=== PATIENT | male | born 1930 | race Caucasian/White ===

== ENCOUNTER → 2020-11-02 | Outpatient (CLI) | payer OTHER ==
[~2020-11-02] MED LIST: ACET650T61 PO; AMLO1TAB24 PO; ASPI81TA26 PO; ATEN50TA2 PO; CHLO4TAB PO; GLUC1CAP10 PO; K-TA1TAB PO; LASI20TA3 PO; NOVOINJ3 SC; VITMTA PO; ZYLO300T6 PO
[2020-11-02 12:47] LABS: BASO % 0.4 % (0.0-1.0); EOS # 0.1 10^3/uL (0.0-0.5); EOS % 1.5 % (0.0-3.0); HEMOGLOBIN 15.3 g/dl (13.5-17.5); LYMPH # 1.3 10^3/uL (1.5-5.0); LYMPH % 13.4 % (24.0-44.0); MEAN CORPUSCULAR HEMOGLOBIN 30.1 pg (27.0-33.0); MEAN CORPUSCULAR VOLUME 88.6 fl (80.0-96.0); MONO # 0.6 10^3/uL (0.0-0.8); MONO % 6.3 % (2.0-8.0); NEUTROPHILS # 7.4 10^3/uL (1.5-8.5); NEUTROPHILS % 78.1 % (36.0-66.0); PLATELET COUNT, AUTOMATED 205 10^3/uL (150-450); RED BLOOD COUNT 5.08 10^6/uL (4.30-6.10); WHITE BLOOD COUNT 9.4 10^3/uL (4.0-10.0)
[2020-11-02 13:46] LABS: ALBUMIN 3.7 GM/DL (3.2-5.2); BILIRUBIN,TOTAL 0.9 MG/DL (0.2-1.0); CALCIUM LEVEL 10.2 MG/DL (8.8-10.2); CREATININE FOR GFR 1.54 MG/DL (0.70-1.30); FREE THYROXINE INDEX 2.7 % (1.4-3.8); GLOMERULAR FILTRATION RATE 45.6 (>35); POTASSIUM SERUM 4.6 MEQ/L (3.5-5.1); THYROID STIMULATING HORMONE 4.52 uIU/ML (0.358-3.740); THYROXINE (T4) 7.9 UG/DL (4.5-12.0); TOTAL 25(OH) VITAMIN D 31.5 NG/ML (30.0-100.0); TOTAL PROTEIN 7.3 GM/DL (6.4-8.2)
== END ==
LOC: M WUC 09:22
PROVIDERS: ATTEND Physician Assistant
DX: E11.621 Type 2 diabetes mellitus with foot ulcer (principal); L97.522 Non-pressure chronic ulcer of other part of left foot with fat layer exposed; Z79.899 Other long term (current) drug therapy; L97.512 Non-pressure chronic ulcer of other part of right foot with fat layer exposed
CPT/HCPCS: 11042; 36415; 80053; 82306; 82652; 82948; 83036; 84436; 84443; 84479; 85025; G0463

== ENCOUNTER → 2020-11-09 | Outpatient (REF) | payer OTHER | LOC: M LAB REF 11:47 | PROVIDERS: ATTEND Physician Assistant | DX: L97.512 Non-pressure chronic ulcer of other part of right foot with fat layer exposed (principal) ==

== ENCOUNTER 2020-12-11 12:44 | Observation (INO) | payer OTHER ==
[~2020-12-11] VITALS: Ht 167.6 cm; Wt 75.8 kg
[~2020-12-11 12:44] MED LIST changes: -NOVOINJ3 SC
[2020-12-11 13:39] LABS: HEMATOCRIT 35.5 % (42.0-52.0); HEMOGLOBIN 12.1 g/dl (13.5-17.5); MEAN CORPUSCULAR HEMOGLOBIN 29.4 pg (27.0-33.0); MEAN CORPUSCULAR HGB CONC 34.1 g/dl (32.0-36.5); MEAN CORPUSCULAR VOLUME 86.2 fl (80.0-96.0); PLATELET COUNT, AUTOMATED 229 10^3/uL (150-450); RED BLOOD COUNT 4.12 10^6/uL (4.30-6.10); WHITE BLOOD COUNT 9.6 10^3/uL (4.0-10.0)
[2020-12-11 13:52] LABS: INR 1.04; PROTHROMBIN TIME 13.8 SECONDS (12.5-14.3)
[2020-12-11 14:07] LABS: CALCIUM LEVEL 9.9 MG/DL (8.8-10.2); CREATININE FOR GFR 1.59 MG/DL (0.70-1.30); POTASSIUM SERUM 4.8 MEQ/L (3.5-5.1)
[2020-12-11] MEDS ORDERED: HumaLOG INSULIN (NovoLOG) PER UNIT As Ordered ONE (14:49)
[2020-12-11] MEDS ORDERED: diphenhydrAMINE 50MG/ML VIAL (J1200) As Ordered ONE (15:00)
[2020-12-11] MEDS ORDERED: MIDAZOLAM INJ 2MG/2ML VIAL (J2250 PER 1MG) As Ordered ONE (15:00)
[2020-12-11] MEDS ORDERED: fentaNYL 100 MCG/2 ML INJECTION (J3010) As Ordered ONE (15:00)
[2020-12-11] MEDS ORDERED: ISOVUE-300 61% 50ML VIAL As Ordered ONE (15:01)
[2020-12-11] MEDS ORDERED: LIDOCAINE 1% MDV 20ML VIAL As Ordered ONE (15:01)
--- NOTE | 2020-12-11 15:27 | IRHP ---
[facility] IR Pre-Procedure H & P General Date of Service: Dec 11, 2020 Procedure: Same Day Surgery Interval History and Physical I have seen the patient and reviewed last H & P performed within 30 days. There is no significant interval change. History of Present Illness Chief Complaint The patient is a 89-year-old male admitted with a reason for visit of PAD. PRE-PROCEDURE DIAGNOSIS: PAD HEART: Normal rate. LUNGS: Normal breathing at rest. ASA Classification ASA Classification: III-Severe systemic dis. Mallampati Score: II NPO: Yes Problems with prior sedation: No Obstructive Sleep Apnea: No Plan moderate sedation Allergies Coded Allergies: TAPE (Verified Allergy, Mild, RASH, 12/11/20) lisinopril (Verified Adverse Reaction, Mild, COUGH, 12/11/20) Home Medications Scheduled Acetaminophen (Tylenol Arthritis), 650 MG PO Q8H, (Reported) Allopurinol (Zyloprim), 300 MG PO DAILY, (Reported) Amlodipine Besylate (Amlodipine Besylate), 5 MG PO DAILY, (Reported) Aspirin (Aspirin EC), 81 MG PO DAILY, (Reported) Atenolol (Atenolol), 50 MG PO DAILY, (Reported) Chlorpheniramine Maleate (Chlor-Trimeton), 4 MG PO BID, (Reported) Furosemide (Lasix), 20 MG PO DAILY, (Reported) Gluc Jade/Chondro Jade A/Vit C/Mn (Glucosamine-Chondroitin Cap), 1 CAP PO DAILY, (Reported) Multivitamins (Thera M Plus Tablet), 1 TAB PO DAILY, (Reported) Potassium Chloride (K-Tab ER), 20 MEQ PO DAILY, (Reported) VS, I&O, 24H, [employer] Vital Signs/I&O Vital Signs Date Time Temp Pulse Resp B/P (MAP) Pulse Ox O2 Delivery O2 Flow Rate FiO2 12/11/20 15:10 68 18 98 Nasal Cannula 2 12/11/20 13:15 97.2 Laboratory Data 24H LABS Laboratory Tests 2 12/11/20 13:25: Nucleated Red Blood Cells % (auto) 0.0, Prothrombin Time 13.8, Prothromb Time International Ratio 1.04, Anion Gap 5L, Glomerular Filtration Rate 44.0, Calcium Level 9.9 CBC/BMP Laboratory Tests 12/11/20 13:25 CLIVE BLACK MD Dec 11, 2020 15:27
[2020-12-11] MEDS ORDERED: GLUCAGON INJ 1MG VIAL SC PRN (17:50)
[2020-12-11] MEDS ORDERED: GLUCOSE 4GM CHEW TABLET PO PRN (17:50)
[2020-12-11] MEDS ORDERED: DEXTROSE 50% 50 ML SYRINGE IV PRN (17:50)
[2020-12-11] MEDS ORDERED: NOVOINJ3 SC (18:21)
[2020-12-11] MEDS ORDERED: traMADol 50 MG TAB PO PRN (18:25)
[2020-12-11] MEDS ORDERED: ACETAMINOPHEN 325 MG TAB As Ordered ONE (18:29)
[2020-12-11] MEDS ORDERED: LORazepam 2 MG TAB PO PRN (18:30)
[2020-12-11] MEDS: ACETAMINOPHEN TAB 650MG DOSE (2X325MG) PO PRN (18:32)
--- NOTE | 2020-12-11 18:34 | HPEPDOC ---
[facility] Medical History & Physical Date of Admission Dec 11, 2020 Date of Service: Dec 11, 2020 Attending Physician: Sharon Raman MD History and Physical CHIEF COMPLAINT: S/p LLE angiogram, observation HISTORY OF PRESENT ILLNESS: Patient is an 89-year-old male with past medical history of peripheral arterial disease, diabetes mellitus, gout, hyperlipidemia, BPH, anemia, chronic kidney disease, obesity, alcohol abuse with left lower extremity popliteal occlusion who presented to [facility] radiology on 12/11/2020 for popliteal artery vascular revascularization. Pre-entry and postoperatively the patient had no acute issues. The interventional radiologist wish to keep the patient for obs ervation stay afterwards medicine team was consulted to admit. At the time of admission the patient had no acute complaints he denied left lower extremity pain, nausea, vomiting, fevers, chills, headache, lightheadedness, dizziness. Vital signs were stable. Patient was awake alert and oriented 3 with no acute complaints. On exam all pulses were present, extremities appear to be perfusing well. All incisions were clean. The patient was admitted under observation status to the hospitalist service for further monitoring. REVIEW OF SYSTEMS: Negative except for what was mentioned above PAST MEDICAL HISTORY: peripheral arterial disease, diabetes mellitus, gout, hyperlipidemia, BPH, anemia, chronic kidney disease, obesity, alcohol abuse PAST SURGICAL HISTORY: LLE angiogram 12/11/20 Appendectomy] Angioplasty 11/2020 FAMILY HISTORY: Father: at 54 y/o Mother: cancer. at 78 y/o SOCIAL HISTORY: Half pack per day smoker for 60 years. Drinks 23 beers per night. Denies i llicit drug use. Lives with his family locally. His primary care provider is through the [place]. Interventional radiologist is Dr. Stiles ALLERGIES: Please see below. HOME MEDICATIONS: Please see below. PHYSICAL EXAMINATION: VS: Please see below CONSTITUTIONAL: No acute distress, resting comfortably, AAO x 3 EYES: PERRLA, EOM intact HENT, MOUTH: Normocephalic, atraumatic, moist mucous membranes NECK: SUPPLE, no JVD, no lymphadenopathy, no carotid bruit CV: Regular rate and rhythm, S1S2 normal, no murmurs/rubs/gallops RESPIRATORY: Clear to auscultation bilaterally, no rales/rhonchi/wheezes GI: BS positive in 4 quadrants, soft, nontender, nondistended, no rebound or guarding, no organomegaly : Deferred MUSCULOSKELETAL: No cyanosis, clubbing, swelling, joint deformity. Incisions of lower ext appear clean, covered in fresh bandage. Mild edema L>R. Pulses strong and present in popliteal, DP, PT b/l lower ext. cap refill ,2 sec in all digits on the LE. INTEGUMENTARY: Intact, no rashes, no lesions, no erythema NEUROLOGIC: Cranial Nerves II-XII are intact, no focal deficits PSYCHIATRIC: Mood and affect are normal LABORATORY DATA: Please see below IMAGING: None ASSESSMENT: 89-year-old male with past medical history of peripheral arterial disease, diabetes mellitus, gout, hyperlipidemia, BPH, anemia, chronic kidney disease, obesity, alcohol abuse admitted under observation status to the hospitalist service for LLE popliteal occlusion s/p popliteal revascularization. PLAN: LLE popliteal occlusion s/p popliteal revascularization/angioplasty -No complications pre-, intra- and post-operatively -Bedrest/off leg for 4 hours after admission -Can resume normal ambulation after 4 hours of bedrest -Resume ASA in the AM, o/p prescription for plavix to be sent in by IR. -Not on statin medication -To f/u with IR after discharge DM type II -BS in 300's -ISS, FS AC/HS, consistent carb diet HTN -BP slightly elevated -2 gm sodium diet -Resume home medications Hypokalemia, chronic -Resume home med Gout -Stable Alcohol abuse -Pt states to have "cut down" to 2-3 beers nightly -No s/s of alcohol withdrawl -[place] protocol DVT px -To resume ASA in the AM DISPOSITION: Admitted under observation status. If all is well overnight, d/c in the AM with f/u with IR. Vital Signs Vital Signs Date Time Temp Pulse Resp B/P (MAP) Pulse Ox O2 Delivery O2 Flow Rate FiO2 12/11/20 17:40 66 18 100 Room Air 12/11/20 17:10 2 12/11/20 13:15 97.2 Laboratory Data Labs 24H Laboratory Tests 2 12/11/20 13:25: Nucleated Red Blood Cells % (auto) 0.0, Prothrombin Time 13.8, Prothromb Time International Ratio 1.04, Anion Gap 5L, Glomerular Filtration Rate 44.0, Calcium Level 9.9 12/11/20 18:00: CBC/BMP Laboratory Tests 12/11/20 13:25 Home Medications Scheduled Acetaminophen (Tylenol Arthritis) 650 Mg Tablet.er, 650 MG PO Q8H for pain Allopurinol (Zyloprim) 300 Mg Tablet, 300 MG PO DAILY Amlodipine Besylate (Amlodipine Besylate) 5 Mg Tablet, 5 MG PO DAILY Aspirin (Aspirin EC) 81 Mg Tablet.dr, 81 MG PO DAILY Atenolol (Atenolol) 50 Mg Tablet, 50 MG PO DAILY Chlorpheniramine Maleate (Chlor-Trimeton) 4 Mg Tablet, 4 MG PO BID Furosemide (Lasix) 20 Mg Tablet, 20 MG PO DAILY Gluc Jade/Chondro Jade A/Vit C/Mn (Glucosamine-Chondroitin Cap) 1 Each Capsule, 1 CAP PO DAILY Multivitamins (Thera M Plus Tablet) 1 Each Tablet, 1 TAB PO DAILY Potassium Chloride (K-Tab ER) 20 Meq Tablet.er, 20 MEQ PO DAILY Allergies Coded Allergies: TAPE (Verified Allergy, Mild, RASH, 12/11/20) lisinopril (Verified Adverse Reaction, Mild, COUGH, 12/11/20) A-FIB/CHADSVASC A-FIB History Current/History of A-Fib/PAF?: No Current PO Anticoag Therapy: No Age/Risk Factor Scoring CHADSVASC: CHADSVASC Response (Comments) Value Gender Risk Factor Male 0 Hx of CHF No 0 Hx of HTN Yes 1 Hx of Stroke/TIA/or VTE No 0 Hx of Diabetes Yes 1 Hx of Vascular Disease Yes 1 Total 3 Treatment Treatment ordered: NONE Other anticoagulant ordered: none Sharon Raman MD Dec 11, 2020 18:34
[2020-12-11 19:25] VITALS: BP 163/72
[2020-12-11 20:25] VITALS: BP 156/70
[2020-12-11] MEDS ORDERED: ONDANSETRON 4MG/2ML VIAL IV PRN (20:35)
[2020-12-11] MEDS ORDERED: PERCOCET 5MG/325MG TAB PO PRN (20:35)
[2020-12-11] MEDS: THIAMINE 100 MG TAB PO SCH (20:59)
[2020-12-11] MEDS ORDERED: HumaLOG INSULIN (NovoLOG) PER UNIT SC SCH (21:00)
[2020-12-11 21:25] VITALS: BP 111/56
[2020-12-11 22:25] VITALS: BP 144/65
[2020-12-12] VITALS: BP 134/60
[2020-12-12 00:38] VITALS: BP 134/60
[2020-12-12 04:00] VITALS: BP 148/64
[2020-12-12 05:11] VITALS: BP 148/64
[2020-12-12 05:57] LABS: HEMATOCRIT 36.2 % (42.0-52.0); HEMOGLOBIN 11.9 g/dl (13.5-17.5); MEAN CORPUSCULAR HEMOGLOBIN 28.4 pg (27.0-33.0); MEAN CORPUSCULAR HGB CONC 32.9 g/dl (32.0-36.5); MEAN CORPUSCULAR VOLUME 86.4 fl (80.0-96.0); PLATELET COUNT, AUTOMATED 227 10^3/uL (150-450); RED BLOOD COUNT 4.19 10^6/uL (4.30-6.10); WHITE BLOOD COUNT 8.6 10^3/uL (4.0-10.0)
[2020-12-12 06:16] LABS: ALBUMIN 2.7 GM/DL (3.2-5.2); BILIRUBIN,TOTAL 0.5 MG/DL (0.2-1.0); CALCIUM LEVEL 9.3 MG/DL (8.8-10.2); CREATININE FOR GFR 1.38 MG/DL (0.70-1.30); GLOMERULAR FILTRATION RATE 51.8 (>35); POTASSIUM SERUM 4.2 MEQ/L (3.5-5.1); TOTAL PROTEIN 7.2 GM/DL (6.4-8.2)
[2020-12-12] MEDS ORDERED: HumaLOG INSULIN (NovoLOG) PER UNIT SC SCH (07:30)
[2020-12-12] MEDS: ACETAMINOPHEN TAB 650MG DOSE (2X325MG) PO PRN (07:47)
[2020-12-12 08:00] VITALS: BP 164/70
[2020-12-12 08:22] VITALS: BP 164/70
[2020-12-12] MEDS: THIAMINE 100 MG TAB PO SCH (08:22)
[2020-12-12] MEDS ORDERED: atenoloL 50 MG TAB PO SCH (09:00)
[2020-12-12] MEDS ORDERED: MULTIVITAMINS/MINERALS THERAP 1 TAB PO SCH (09:00)
[2020-12-12] MEDS ORDERED: allopurinoL 300 MG TAB PO SCH (09:00)
[2020-12-12] MEDS ORDERED: amLODIPine 5 MG TAB PO SCH (09:00)
[2020-12-12] MEDS ORDERED: ASPIRIN 81MG ENTERIC TABLET PO SCH (09:00)
[2020-12-12] MEDS ORDERED: FOLIC ACID 1 MG TAB PO SCH (09:00)
--- NOTE | 2020-12-12 14:18 | DS.PDOC ---
Discharge Summary General Date of Admission Dec 11, 2020 at 19:16 Date of Discharge 12/12/20 Attending Physician: Sharon Raman MD Discharge Summary HISTORY OF PRESENT ILLNESS: Patient is an 89-year-old male with past medical history of peripheral arterial disease, diabetes mellitus, gout, hyperlipidemia, BPH, anemia, chronic kidney disease, obesity, alcohol abuse with left lower extremity popliteal occlusion who presented to [facility] radiology on 12/11/2020 for popliteal artery vascular revascularization. Pre-entry and postoperatively the patient had no acute issues. The interventional radiologist wish to keep the patient for observation stay afterwards medicine team was consulted to admit. At the time of admission the patient had no acute complaints he denied left lower extremity pain, nausea, vomiting, fevers, chills, headache, lightheadedness, dizziness. Vital signs were stable. Patient was awake alert and oriented 3 with no acute complaints. On exam all pulses were present, extremities appear to be perfusing well. All incisions were clean. The patient was admitted under observation status to the hospitalist service for further monitoring. HOSPITAL COURSE: No events overnight. Patient was ambulating well at his baseline the next AM. he had no increased swelling, LE pain, pulses were wnl. He was discharged home with prior home medications to f/u with Dr. Stiles in several weeks. PAST MEDICAL HISTORY: peripheral arterial disease, diabetes mellitus, gout, hyperlipidemia, BPH, anemia, chronic kidney disease, obesity, alcohol abuse PAST SURGICAL HISTORY: LLE angiogram 12/11/20 Appendectomy] Angioplasty 11/2020 FAMILY HISTORY: Father: at 54 y/o Mother: cancer. at 78 y/o SOCIAL HISTORY: Half pack per day smoker for 60 years. Drinks 23 beers per night. Denies illicit drug use. Lives with his family locally. His primary care provider is through the [place]. Interventional radiologist is Dr. Stiles ALLERGIES: Please see below. HOME MEDICATIONS: Please see below. PHYSICAL EXAMINATION: VS: Please see below CONSTITUTIONAL: No acute distress, sitting up on side of bed, AAO x 3 EYES: PERRLA, EOM intact HENT, MOUTH: Normocephalic, atraumatic, moist mucous membranes NECK: SUPPLE, no JVD, no lymphadenopathy, no carotid bruit CV: Regular rate and rhythm, S1S2 normal, no murmurs/rubs/gallops RESPIRATORY: Clear to auscultation bilaterally, no rales/rhonchi/wheezes GI: BS positive in 4 quadrants, soft, nontender, nondistended, no rebound or guarding, no organomegaly : Deferred MUSCULOSKELETAL: No cyanosis, clubbing, swelling, joint deformity. Incisions of lower ext appear clean, covered in fresh bandage. Mild edema L>R. Pulses strong and present in popliteal, DP, PT b/l lower ext. cap refill ,2 sec in all digits on the LE. INTEGUMENTARY: Intact, no rashes, no lesions, no erythema NEUROLOGIC: Cranial Nerves II-XII are intact, no focal deficits PSYCHIATRIC: Mood and affect are normal LABORATORY DATA: Please see below IMAGING: None ASSESSMENT: 89-year-old male with past medical history of peripheral arterial disease, diabetes mellitus, gout, hyperlipidemia, BPH, anemia, chronic kidney disease, obesity, alcohol abuse admitted under observation status to the hospitalist service for LLE popliteal occlusion s/p popliteal revascularization. PLAN: LLE popliteal occlusion s/p popliteal revascularization/angioplasty -No complications pre-, intra- and post-operatively -Ambulating at baseline. -Resume ASA and other home medications, o/p prescription for plavix to be sent in by IR. -Not on statin medication -To f/u with IR after discharge DM type II -C/w home med -F/u with PCP HTN -C/w home med Hypokalemia, chronic -C/w home med Gout -Stable Alcohol abuse -Pt states to have "cut down" to 2-3 beers nightly -No s/s of alcohol withdrawl DISPOSITION: D/c home today to f/u with PCP, Dr. Stiles TIME SPENT ON DISCHARGE: 35 minutes. Vital Signs/I&Os Vital Signs Date Time Temp Pulse Resp B/P (MAP) Pulse Ox O2 Delivery O2 Flow Rate FiO2 12/12/20 08:22 72 164/70 12/12/20 08:00 97.7 18 92 Room Air 12/11/20 17:10 2 I&O- Last 24 Hours up to 6 AM 12/12/20 06:00 Intake Total 300 ml Output Total 800 ml Balance -500 ml Laboratory Data Labs 24H Laboratory Tests 2 12/11/20 18:00: Coronavirus (COVID-19)(PCR) NEGATIVE 12/11/20 20:38: Bedside Glucose (Misc Panel) 184H 12/12/20 05:20: Nucleated Red Blood Cells % (auto) 0.0, Anion Gap 4L, Glomerular Filtration Rate 51.8, Calcium Level 9.3, Total Bilirubin 0.5, Aspartate Amino Transf (AST/SGOT) 7, Alanine Aminotransferase (ALT/SGPT) 17, Alkaline Phosphatase 92, Total Protein 7.2, Albumin 2.7L, Albumin/Globulin Ratio 0.6 CBC/BMP Laboratory Tests 12/12/20 05:20 FSBS Laboratory Tests Test 12/11/20 20:38 Range/Units Bedside Glucose (Misc Panel) 184 83-110 MG/DL Discharge Medications Scheduled Acetaminophen (Tylenol Arthritis) 650 Mg Tablet.er, 650 MG PO Q8H for pain, (Reported) Allopurinol (Zyloprim) 300 Mg Tablet, 300 MG PO DAILY, (Reported) Amlodipine Besylate (Amlodipine Besylate) 5 Mg Tablet, 5 MG PO DAILY, (Reported) Aspirin (Aspirin EC) 81 Mg Tablet.dr, 81 MG PO DAILY, (Reported) Atenolol (Atenolol) 50 Mg Tablet, 50 MG PO DAILY, (Reported) Chlorpheniramine Maleate (Chlor-Trimeton) 4 Mg Tablet, 4 MG PO BID, (Reported) Gluc Jade/Chondro Jade A/Vit C/Mn (Glucosamine-Chondroitin Cap) 1 Each Capsule, 1 CAP PO DAILY, (Reported) Insulin Aspart (Novolog Flexpen) 100 Unit/1 Ml Insuln.pen, 1 DOSE SC AC, (Reported) PER SLIDING SCALE Multivitamins (Thera M Plus Tablet) 1 Each Tablet, 1 TAB PO DAILY, (Reported) Potassium Chloride (K-Tab ER) 20 Meq Tablet.er, 20 MEQ PO DAILY, (Reported) ONLY TAKE WITH FUROSEMIDE Scheduled PRN Furosemide (Lasix) 20 Mg Tablet, 20 MG PO DAILY PRN for EDEMA, (Reported) Allergies Coded Allergies: TAPE (Verified Allergy, Mild, RASH, 12/11/20) lisinopril (Verified Adverse Reaction, Mild, COUGH, 12/11/20) Sharon Raman MD Dec 12, 2020 14:18
--- NOTE | 2020-12-14 14:37 | IRPON ---
IR Postoperative Note Date Of Procedure: Dec 11, 2020 Time Of Procedure: 16:00 IR Postoperative Note IR Left leg angiogram. IR Left below-knee runoff arteriogram. IR Ultrasound-guided right common femoral artery access. IR Left popliteal artery recanalization. IR Left anterior tibial artery recanalization. IR Left superficial femoral artery angioplasty. IR Left popliteal artery angioplasty. IR Left anterior tibial artery angioplasty. IR Moderate sedation. Clinical Information:Nonhealing bilateral lower extremity wounds. [facility] intervention. Physician: Dr. Stiles. Procedure: The patient was advised of the benefits, risks, and alternatives of the procedure and informed consent was obtained. A time out was performed with verification of the patient's name, MRN, site of procedure, and type of procedure to be performed. The patient was positioned in the supine position on the angiographic table. The site was prepped and draped in the usual sterile fashion. Moderate sedation was performed by the physician including the presence of an independent trained RN, who assisted in monitoring the patient's level of consciousness and physiological status. Following the administration of fentanyl and Versed, the physician spent 120 minutes of continuous [id number] time with the patient. A stucco mason radiograph reveals no gross abnormality. Lidocaine was used for local anesthesia. The right common femoral artery was accessed under fluoroscopic guidance with a microintroducer set. A short 0.018" [place] wire was inserted and the needle was exchanged for a 4 Fr microintroducer sheath. The guidewire and dilator were removed and a 0.035" Bentson wire was placed into the abdominal aorta. A 6 Fr sheath was placed over the wire. A flush catheter was advanced over the wire under fluoroscopy guidance and used to catheterize the infrarenal abdominal aorta. An aortic and pelvic arteriogram was performed. This demonstrates patent infrarenal abdominal aorta and bilateral common iliac arteries. Patent bilateral external iliac arteries. Stenosis at the origin of the right internal iliac artery. Patent left internal iliac artery. A wire was advanced through the flush catheter and used to gain up and over access under fluoroscopy guidance. The catheter was removed over the wire. A glide cath was advanced over the wire and used under fluoroscopy guidance to catheterize the left external iliac artery. A left leg angiogram was performed. This demonstrates patent left common femoral artery, proximal mid and distal superficial artery and patent profunda femoris. There is irregularity and diffuse atherosclerotic disease in the superficial femoral artery with multi focal stenosis and a distal stenosis greater than 80%. Angiography further down the left leg was performed. This demonstrates irregularity and multifocal stenosis in the proximal and mid popliteal artery. There is complete occlusion of the distal popliteal artery. No dedicated runoff vessels seen below the occluded left popliteal artery. A runoff arteriogram to the left foot was performed. This demonstrates complete occlusion of proximal, mid and distal anterior tibial and posterior tibial artery. Extremely delayed distal reconstitution of the peroneal artery, dorsalis pedis and posterior tibialis via collaterals. No direct in-line flow to the left foot. The catheter was removed over the wire. The short vascular sheath was exchanged over the wire for a 6 Czech 45 cm destination sheath. This was positioned under fluoroscopy guidance over the wire, into the left common femoral artery. A Navicross catheter was then used in conjunction with a Glidewire, under fluoroscopy guidance to catheterize the left popliteal artery. The catheter in conjunction with a series of wires, was used under fluoroscopy guidance to recanalize the occluded distal left popliteal artery. Intermittent injection of contrast confirmed intraluminal location. The catheter in conjunction with the wire was then used to recanalize the occluded left anterior tibial artery. Intermittent injection of contrast confirmed intraluminal location. After successful catheterization of the mid left anterior tibial artery. The catheter was removed over the wire. A 3 x 200 mm [place] balloon was advanced over the wire under fluoroscopy guidance and positioned in the popliteal artery and recanalized proximal anterior tibial artery. Angioplasty was performed. Heparin was administered. The balloon was then deflated and repositioned to the mid and distal left anterior tibial artery. Angioplasty was performed. A left foot arteriogram was then performed through the angioplasty catheter tip located in the dorsalis pedis. This demonstrates good forward flow in the dorsalis pedis and supply to the foot with no distal vessel cutoff or emboli. The angioplasty balloon was removed over the wire. A left leg angiogram was then performed through the sheath, tip located in the left common femoral artery. This now demonstrates successful recanalization of the distal popliteal artery and in-line flow into the anterior tibial artery. No arterial extravasation or distal emboli. Multifocal stenosis is still present in the popliteal artery. A runoff arteriogram to the left foot was then performed. This demonstrates good in-line flow in the recanalized proximal, mid and distal anterior tibial artery coursing into dorsalis pedis. There is also improved flow into collaterals which are feeding the distal posterior tibial artery and peroneal artery. Improved vascularity to the left foot. A 6 x 200 mm [place] balloon was then advanced over the wire under fluoroscopic guidance and positioned in the distal SFA and proximal, mid and distal popliteal artery. Angioplasty was performed. The balloon was then deflated and removed over the wire. A post angioplasty follow-up arteriogram was performed through the groin sheath and this demonstrates improved flow in the left distal superficial femoral artery, proximal, mid and distal popliteal artery and new in-line flow into the anterior tibial artery. Resolution of distal SFA and multifocal popliteal stenosis. No extravasation, vessel cutoff or distal emboli. Preserved flow in the geniculate collaterals. The wire was removed. The long sheath was exchanged over a wire for a short vascular sheath. A 6 Czech Mynx device was used to close the right groin arteriotomy. Hemostasis achieved and a sterile dressing was applied to the site. The patient tolerated the procedure well and was returned to the PRU in stable condition. EBL: < 5 mL. Complications:None. Impression: 1. Left leg angiogram demonstrates complete occlusion of the distal left popliteal artery with no in-line below-knee flow to the left foot. 2. Irregularity and stenosis in the distal superficial femoral artery and proximal popliteal artery. 3. Successful recanalization of the occluded left popliteal artery and angioplasty. 4. Successful recanalization of occluded proximal, mid and distal anterior ti bial artery and angioplasty with improved flow to the left foot. 5. Patient to start on daily aspirin and Plavix and advised to quit smoking. 6. Patient will be brought back for right leg intervention. Thank you for this referral CC CLIVE Wang MD Dec 14, 2020 14:37
== END 2020-12-12 10:35 | disposition home or self-care (01) ==
LOC: M IRPRO 12:44 → M PCU 19:16
PROVIDERS: ADMIT Internal Medicine; ATTEND Radiology Diagnostic Radiology
DX: I70.249 Atherosclerosis of native arteries of left leg with ulceration of unspecified site (principal); L97.929 Non-pressure chronic ulcer of unspecified part of left lower leg with unspecified severity; Z79.899 Other long term (current) drug therapy; Z88.8 Allergy status to other drugs, medicaments and biological substances; Z91.048 Other nonmedicinal substance allergy status; M10.9 Gout, unspecified; E11.59 Type 2 diabetes mellitus with other circulatory complications; E66.9 Obesity, unspecified; N40.0 Benign prostatic hyperplasia without lower urinary tract symptoms; E78.49 Other hyperlipidemia; N18.9 Chronic kidney disease, unspecified; Z79.82 Long term (current) use of aspirin; Z79.4 Long term (current) use of insulin
CPT/HCPCS: 36415; 37224; 37228; 75630; 75774; 80048; 80053; 85027; 85610; 99152; 99153; C1725; C1760; C1769; C1887; C1894; G0378; J1644; J2250; J3010; Q9967; U0002

== ENCOUNTER → 2020-12-28 | Outpatient (REF) | payer OTHER ==
[~2020-12-28] MED LIST changes: +NOVOINJ3 SC
== END ==
LOC: M LAB REF 11:49
PROVIDERS: ATTEND Surgery
DX: M86.272 Subacute osteomyelitis, left ankle and foot (principal)

== ENCOUNTER → 2021-01-02 | Outpatient (POV) | payer OTHER ==
[~2021-01-02] VITALS: Ht 167.6 cm; Wt 77.3 kg
[2021-01-02 15:44] VITALS: BP 170/74
--- NOTE | 2021-01-05 09:59 | IRPN ---
[facility] IR Progress Note IR Progress Note DATE: Jan 02, 2021 FOLLOW-UP: 89-year-old male with bilateral lower extremity arterial disease and nonhealing wounds, now status post left lower extremity angiography by me, with recanalization of the popliteal artery and anterior tibial artery with improved flow to the left foot. Patient also underwent recent angiography and intervention at the [facility] for the right lower extremity. Patient reports the pain and swelling in his left leg has gone. He feels much better than prior to the intervention. He describes 2 ulcers on the left, 1 of which is almost healed. He also describes improvement in the right lower extremity with less pain. There are more right lower extremity ulcers than on the left lower extremity. He continues under wound care. ON EXAMINATION: Left lower extremity: Minimal edema at the ankle. Edema to the tibia has resolved. Skin color and temperature is normal. Femoral pulse 2+ popliteal pulses 1+ DP PT 1+ Right lower extremity: No edema. Skin color and temperature normal to touch. Femoral pulse 2+ popliteal pulses 1+ DP PT 1+ IMAGING: [facility]. Right lower extremity angiography demonstrated SFA disease and popliteal artery o cclusion with no runoff to the right foot. SFA and popliteal angioplasty was performed with peroneal recanalization and angioplasty resulting in peroneal artery runoff to the right foot. Anterior tibial and posterior tibial artery could not be recannulated. IMPRESSION: 89-year-old smoker male with bilateral lower extremity peripheral vascular disease, now doing much better with less pain and swelling in bilateral lower extremities. His physical examination is improved with palpable pulses. His left lower extremity now has improved flow via the anterior tibial artery all the way into the left foot. His right foot intervened on at outside [facility] has peroneal artery supply to the ankle. He may need right lower extremity angiography and intervention here however, as his pain and symptoms are much better right now we are willing to wait 3 months and follow him up. Continue aspirin and Plavix. Quit smoking. Thank you for this referral. Cc Dr. Vanessa Allergies Coded Allergies: TAPE (Verified Allergy, Mild, RASH, 12/11/20) lisinopril (Verified Adverse Reaction, Mild, COUGH, 12/11/20) VS,Fishbone, I+O VS, Fishbone, I+O Vital Signs Date Time Temp Pulse Resp B/P (MAP) Pulse Ox O2 Delivery O2 Flow Rate FiO2 01/02/21 15:44 97.4 67 16 170/74 (106) 100 Room Air CLIVE BLACK MD Jan 05, 2021 09:59
== END ==
LOC: M IRPOV 15:30
PROVIDERS: ATTEND Radiology Diagnostic Radiology
DX: Z48.812 Encounter for surgical aftercare following surgery on the circulatory system (principal); I70.25 Atherosclerosis of native arteries of other extremities with ulceration; F17.210 Nicotine dependence, cigarettes, uncomplicated; Z79.01 Long term (current) use of anticoagulants; Z79.82 Long term (current) use of aspirin; Z88.8 Allergy status to other drugs, medicaments and biological substances; Z91.041 Radiographic dye allergy status

== ENCOUNTER → 2021-01-05 | Outpatient (REF) | payer OTHER | LOC: M LAB REF 11:52 | PROVIDERS: ATTEND Surgery | DX: L97.512 Non-pressure chronic ulcer of other part of right foot with fat layer exposed (principal) ==

== ENCOUNTER → 2021-04-10 | Outpatient (POV) | payer OTHER ==
[~2021-04-10] VITALS: Ht 172.7 cm; Wt 70.4 kg
[2021-04-10 13:50] VITALS: BP 160/78
--- NOTE | 2021-04-12 13:07 | IRPN ---
[facility] IR Progress Note IR Progress Note DATE: Apr 10, 2021 FOLLOW-UP: 89-year-old male, smoker, diabetic with bilateral lower extremity peripheral vascular disease. Patient had prior nonhealing bilateral lower extremity wounds. He underwent left lower extremity popliteal and anterior tibial artery recanalization with me, after which all his ulcers on the left lower extremity have healed. He denies any left lower extremity swelling or rest pain. He denies any intermittent claudication. 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 At the [facility], he had popliteal artery recanalization and angioplasty with failed anterior and posterior tibial artery recanalization. He has one ulcer remaining on his right lower extremity. He continues to smoke. He is on aspirin and Plavix. ON EXAMINATION: Bilateral lower extremities normal in color. No edema. Single ulceration right foot. IMPRESSION: Doing well status post left lower extremity popliteal artery and anterior tibial artery recanalization with me and complete healing of his left lower extremity ulcerations. No further rest pain. He is encouraged to exercise, continue his aspirin, Plavix, good diabetes control, good blood pressure control. 2. Ongoing right foot ulceration, if this does not heal in the future, he may need a right lower extremity angiography with me with attempt at anterior and posterior tibial artery recanalization. Thank you for this referral. Cc Dr. Vanessa Allergies Coded Allergies: TAPE (Verified Allergy, Mild, RASH, 12/11/20) lisinopril (Verified Adverse Reaction, Mild, COUGH, 12/11/20) VS,Fishbone, I+O VS, Fishbone, I+O Vital Signs Date Time Temp Pulse Resp B/P (MAP) Pulse Ox O2 Delivery O2 Flow Rate FiO2 04/10/21 13:50 97.0 67 20 160/78 (105) 100 Room Air CLIVE BLACK MD Apr 12, 2021 13:07
== END ==
LOC: M IRPOV 13:44
PROVIDERS: ATTEND Radiology Diagnostic Radiology
DX: I70.235 Atherosclerosis of native arteries of right leg with ulceration of other part of foot (principal); L97.519 Non-pressure chronic ulcer of other part of right foot with unspecified severity; E11.51 Type 2 diabetes mellitus with diabetic peripheral angiopathy without gangrene; F17.210 Nicotine dependence, cigarettes, uncomplicated; Z88.8 Allergy status to other drugs, medicaments and biological substances; Z91.048 Other nonmedicinal substance allergy status

== ENCOUNTER → 2021-10-31 | Outpatient (REF) | payer OTHER ==
[2021-10-31 19:46] LABS: HEMOGLOBIN A1c 7.6 %
== END ==
LOC: M SFHCWOUN 16:54
PROVIDERS: ATTEND Surgery
DX: E11.621 Type 2 diabetes mellitus with foot ulcer (principal)

== ENCOUNTER → 2022-03-05 | Outpatient (POV) | payer OTHER ==
[~2022-03-05] VITALS: Ht 167.6 cm; Wt 77.2 kg
[2022-03-05 14:30] VITALS: BP 158/78
== END ==
LOC: M IRPOV 14:25
PROVIDERS: ATTEND Radiology Diagnostic Radiology
DX: I70.235 Atherosclerosis of native arteries of right leg with ulceration of other part of foot (principal); L97.519 Non-pressure chronic ulcer of other part of right foot with unspecified severity; E11.51 Type 2 diabetes mellitus with diabetic peripheral angiopathy without gangrene; F17.210 Nicotine dependence, cigarettes, uncomplicated; Z88.8 Allergy status to other drugs, medicaments and biological substances; Z91.048 Other nonmedicinal substance allergy status

== ENCOUNTER → 2022-06-12 | Outpatient (CLI) | payer OTHER | LOC: M RAD 08:21 | PROVIDERS: ATTEND Internal Medicine Nephrology | DX: I70.1 Atherosclerosis of renal artery (principal); N18.31 Chronic kidney disease, stage 3a ==

== ENCOUNTER → 2022-08-01 | Outpatient (CLI) | payer OTHER | LOC: M LABSMTC 08:08 | PROVIDERS: ATTEND Anesthesiology | DX: Z01.818 Encounter for other preprocedural examination (principal); Z11.52 Encounter for screening for COVID-19 ==

== ENCOUNTER → 2022-08-06 | Outpatient (CLI) | payer OTHER ==
[~2022-08-06] VITALS: Ht 167.6 cm; Wt 79.4 kg
[~2022-08-06] MED LIST changes: +ACETAMINOPHEN 500 MG TAB As Ordered ONE; +ACETAMINOPHEN 500 MG TAB PO PRN; +ISOVUE-300 61% 50ML VIAL As Ordered ONE; +LIDOCAINE 1% MDV 20ML VIAL As Ordered ONE; +MIDAZOLAM INJ 2MG/2ML VIAL (J2250 PER 1MG) As Ordered ONE; +ONDANSETRON 4MG 2ML VIAL IV PRN; +ceFAZolin 2 GM/D5W 50 ML IV BAG (J0690 PER 500MG) As Ordered ONE; +ceFAZolin SOD 2 GM in IV 1 EA IV ONE; +fentaNYL 100 MCG/2 ML INJECTION As Ordered ONE
[2022-08-06 07:40] LABS: HEMATOCRIT 41.5 % (42.0-52.0); HEMOGLOBIN 13.9 g/dl (13.5-17.5); MEAN CORPUSCULAR HEMOGLOBIN 28.5 pg (27.0-33.0); MEAN CORPUSCULAR HGB CONC 33.5 g/dl (32.0-36.5); MEAN CORPUSCULAR VOLUME 85.2 fl (80.0-96.0); PLATELET COUNT, AUTOMATED 194 10^3/uL (150-450); RED BLOOD COUNT 4.87 10^6/uL (4.30-6.10); WHITE BLOOD COUNT 9.4 10^3/uL (4.0-10.0)
[2022-08-06 07:53] LABS: INR 0.96
[2022-08-06 07:54] LABS: PARTIAL THROMBOPLASTIN TIME 33.9 SECONDS (24.8-34.2)
[2022-08-06 08:12] LABS: CALCIUM LEVEL 9.8 MG/DL (8.3-10.6); CREATININE FOR GFR 2.34 MG/DL (0.70-1.30); GLOMERULAR FILTRATION RATE 28.1 (>35); POTASSIUM SERUM 4.5 MMOL/L (3.5-5.1)
[2022-08-06 14:15] VITALS: BP 167/77
== END ==
LOC: M IRPRO 07:03
PROVIDERS: ATTEND Surgery Vascular Surgery
DX: I15.0 Renovascular hypertension (principal)
CPT/HCPCS: 37236; 80048; 85027; 85610; 85730; 86850; 86900; 86901; 93005; 99152; 99153; C1725; C1760; C1769; C1876; C1887; C1894; J0690; J1644; J2250; J3010; Q9967